=== PATIENT | female | born 1965 | race Two or more races ===

== ENCOUNTER 2016-08-18 20:57 | Emergency (ER) | payer OTHER ==
[~2016-08-18] VITALS: Ht 144.8 cm; Wt 108.9 kg
[~2016-08-18 20:57] MED LIST: DEXL60CA3 PO; IBUP600T27 PO; LEV25T PO; NITR-52 PO
[2016-08-18 21:49] LABS: Basophils # (auto) 0.1 uL; Basophils % (auto) 0.5 % (0.0-2.0); Eosinophils # (auto) 0.1 uL; Eosinophils % (auto) 0.9 % (0.0-7.0); Hemoglobin 12.7 g/dL (12.2-16.2); Lymphocytes # (auto) 2.5 uL; Lymphocytes % (auto) 18.4 % (10.0-50.0); Mean Corpuscular Hemoglobin 29.7 pg (28.0-32.0); Mean Corpuscular Hgb Conc. 33.5 g/dL (32.0-36.0); Mean Corpuscular Volume 88.8 fL (80.0-100.0); Mean Platelet Volume 9.6 fL (7.4-10.4); Monocytes # (auto) 0.8 uL; Monocytes % (auto) 6.2 % (0.0-12.0); Neutrophils # (auto) 10.1 uL; Platelet Count (auto) 270 10^3/uL (140-450); Red Cell Distribution Width 13.3 % (11.6-16.0); White Blood Cell 13.6 10^3/uL (4.4-10.8)
[2016-08-18 22:01] LABS: Urine Bilirubin Negative (Negative); Urine Color Yellow (Yellow); Urine Glucose Normal (Normal); Urine Ketone Negative (Negative); Urine Nitrite Negative (Negative); Urine RBC 9 /hpf (0 - 4); Urine Squamous Epithelial Cell FEW /hpf (<5); Urine Urobilinogen Normal (Negative)
[2016-08-18 22:03] LABS: Urine Blood 2+ /uL (Negative)
[2016-08-18 22:10] LABS: Albumin 3.4 g/dL (3.4-5.0); Amylase 34 U/L (25-115); Anion Gap 11 (5-15); Aspartate Aminotransferase 10 U/L (15-37); BUN/Creatinine Ratio 20.3; Blood Urea Nitrogen 15 mg/dL (7-18); Calcium 8.9 mg/dL (8.5-10.1); Carbon Dioxide 24 mmol/L (21-32); Chloride 105 mmol/L (98-107); GFR African American 106 mL/min; GFR Non-African American 87 mL/min; Glucose 106 mg/dL (74-106); Potassium 4.1 mmol/L (3.5-5.1); Sodium 140 mmol/L (136-145)
[2016-08-18 22:15] LABS: Alkaline Phosphatase 82 U/L (45-117); Bilirubin, Total 0.3 mg/dL (0.2-1.0); Total Protein 7.4 g/dL (6.4-8.2)
[2016-08-19 09:27] VITALS: BP 135/60
== END 2016-08-19 10:58 | disposition home or self-care (01) ==
LOC: ER 21:01
DX: N39.0 Urinary tract infection, site not specified (principal); Z79.899 Other long term (current) drug therapy; R07.9 Chest pain, unspecified; R06.02 Shortness of breath; E66.01 Morbid (severe) obesity due to excess calories; Z68.43 Body mass index [BMI] 50.0-59.9, adult
CPT/HCPCS: 36415; 74176; 80053; 81001; 82150; 83690; 83735; 84484; 85025; 93005